=== PATIENT | female | born 1950 ===

== ENCOUNTER → 2016-10-16 | Outpatient (CLI) | payer OTHER ==
[2016-10-16 13:29] LABS: ESTIMATED AVERAGE GLUCOSE 137 mg/dl; HA1C FLAG Normal (Normal)
[2016-10-16 13:39] LABS: CALCIUM 9.5 mg/dl (8.5-10.1)
[2016-10-16 13:41] LABS: ALT/SGPT 25 U/L (12-78); BLOOD UREA NITROGEN 23 mg/dl (7-18); BUN/CREATININE RATIO 20.7 (10-20); CARBON DIOXIDE 30 mmol/L (21-32); CHLORIDE 99 mmol/L (98-107); CHOLESTEROL 154 mg/dl (0-200); GLUCOSE 107 mg/dl (70-99); POTASSIUM 3.7 mmol/L (3.5-5.1); SODIUM 136 mmol/L (136-145); TRIGLYCERIDES 84 mg/dl (0-150); VERY LOW DENSITY LIPOPROT CALC 17 mg/dl
[2016-10-16 13:43] LABS: ALB/GLOB RATIO 1.4 (0.9-2); ALKALINE PHOSPHATASE 78 U/L (45-117); AST/SGOT 11 U/L (15-37); CHOLESTEROL/HDL RATIO 3.1; HDL CHOLESTEROL 49 mg/dl; LDL CHOLESTEROL CALCULATED 88 mg/dl
== END | disposition home or self-care (01) ==
LOC: C.LABPVFM 07:57
PROVIDERS: ATTEND Nurse Practitioner
DX: Z00.00 Encounter for general adult medical examination without abnormal findings (principal); E11.9 Type 2 diabetes mellitus without complications; E78.5 Hyperlipidemia, unspecified

== ENCOUNTER → 2017-04-14 | Outpatient (CLI) | payer OTHER ==
[2017-04-14 13:42] LABS: ALT/SGPT 26 U/L (12-78); BLOOD UREA NITROGEN 13 mg/dl (7-18); BUN/CREATININE RATIO 12.3 (10-20); CALCIUM 9.4 mg/dl (8.5-10.1); CARBON DIOXIDE 29 mmol/L (21-32); CHLORIDE 100 mmol/L (98-107); CHOLESTEROL 146 mg/dl (0-200); CREATININE 1.04 mg/dl (0.60-1.20); GLUCOSE 93 mg/dl (70-99); POTASSIUM 3.9 mmol/L (3.5-5.1); SODIUM 136 mmol/L (136-145); TRIGLYCERIDES 106 mg/dl (0-150); VERY LOW DENSITY LIPOPROT CALC 21 mg/dl
[2017-04-14 13:46] LABS: ESTIMATED AVERAGE GLUCOSE 128 mg/dl; HA1C FLAG Normal (Normal)
[2017-04-14 13:47] LABS: ALB/GLOB RATIO 1.2 (0.9-2); ALKALINE PHOSPHATASE 85 U/L (45-117); AST/SGOT 16 U/L (15-37); CHOLESTEROL/HDL RATIO 2.9; HDL CHOLESTEROL 51 mg/dl; LDL CHOLESTEROL CALCULATED 74 mg/dl
== END | disposition home or self-care (01) ==
LOC: C.LABPVFM 07:39
PROVIDERS: ATTEND Nurse Practitioner
DX: I10 Essential (primary) hypertension (principal); E11.9 Type 2 diabetes mellitus without complications; E78.5 Hyperlipidemia, unspecified

== ENCOUNTER → 2017-10-10 | Outpatient (CLI) | payer OTHER ==
[2017-10-10 13:13] LABS: BLOOD UREA NITROGEN 13 mg/dl (7-18); CALCIUM 8.9 mg/dl (8.5-10.1); CARBON DIOXIDE 29 mmol/L (21-32); CREATININE 1.14 mg/dl (0.60-1.20); GLUCOSE 122 mg/dl (70-99); POTASSIUM 4.2 mmol/L (3.5-5.1); SODIUM 136 mmol/L (136-145)
[2017-10-10 13:30] LABS: HEMOGLOBIN A1C 6.3 % (4.5-5.6)
== END | disposition home or self-care (01) ==
LOC: C.LABPVFM 07:32
PROVIDERS: ATTEND Nurse Practitioner
DX: E11.9 Type 2 diabetes mellitus without complications (principal); I10 Essential (primary) hypertension; E78.5 Hyperlipidemia, unspecified

== ENCOUNTER → 2017-10-26 | Outpatient (CLI) | payer OTHER | END | disposition home or self-care (01) | LOC: C.LABPVFM 17:29 | PROVIDERS: ATTEND Family Medicine | DX: N39.0 Urinary tract infection, site not specified (principal) ==